=== PATIENT | male | born 1955 | race Caucasian/White ===

== ENCOUNTER → 2018-05-12 | Outpatient (REF) | LOC: M SMT 13:10 | DX: Z00.00 Encounter for general adult medical examination without abnormal findings (principal) ==

== ENCOUNTER → 2024-03-02 | Outpatient (REF) | payer MEDICARE, BC, OTHER ==
[2024-03-02 12:38] LABS: APPEARANCE, URINE CLEAR (CLEAR); BACTERIA, URINE AUTO 1+ (NEGATIVE); BILIRUBIN, URINE AUTO NEGATIVE (NEGATIVE); BLOOD, URINE BLOOD 1+ (NEGATIVE); COLOR, URINE YELLOW (YELLOW); GLUCOSE, URINE (UA) AUTO NEGATIVE (NEGATIVE); KETONE, URINE AUTO NEGATIVE (NEGATIVE); LEUKOCYTE ESTERASE, URINE AUTO TRACE (NEGATIVE); MUCUS, URINE SMALL (NEGATIVE); NITRITE, URINE AUTO NEGATIVE (NEGATIVE); PROTEIN, URINE AUTO NEGATIVE (NEGATIVE); RBC, URINE AUTO 1 /HPF (0-3); SPECIFIC GRAVITY URINE AUTO 1.016 (1.002-1.035); SQUAMOUS EPITHELIAL CELL UR AU 0 /HPF (0-6); WBC, URINE AUTO 4 /HPF (0-3)
== END ==
LOC: M SMT 12:18
PROVIDERS: ATTEND Physician Assistant
DX: R31.21 Asymptomatic microscopic hematuria (principal)

== ENCOUNTER 2025-07-13 08:21 | Day surgery (SDC) | payer MEDICARE, BC ==
[~2025-07-13] VITALS: Ht 185.4 cm; Wt 125.2 kg
[~2025-07-13 08:21] MED LIST: FINA5TAB2 PO; GABA-1172 PO; IBUP600T42 PO; LIFI1DRO4; MIDAZOLAM INJ 2 MG/2 ML VIAL As Ordered ONE; OXYC7.5T3 PO; PHENYLEPHRINE 10% OPHTH SOL 5ML OD PRN; REST0.057; VALS1TAB66 PO
[2025-07-13] MEDS: PHENYLEPHRINE 2.5% OPHTH SOL 2ML OD SCH (08:50)
[2025-07-13] MEDS: CYCLOPENTOLATE 1% OPHTH SOLN 2 ML BTL OD SCH (08:50)
[2025-07-13] MEDS: LIDOCAINE 3.5% 1 ML OPHTH TOPICAL GEL OU ONE (08:50)
[2025-07-13] MEDS: OFLOXACIN 0.3 % (OCUFLOX) OPTH SOL 5ML OD ONE (08:50)
[2025-07-13] MEDS: TROPICAMIDE 1% OPHTH SOLN 15ML OD SCH (08:51)
[2025-07-13] MEDS ORDERED: PROVISC 10 MG/ML 0.85ML SYRINGE As Ordered ONE (09:31)
[2025-07-13] MEDS: LIDOCAINE 1% SDV 5 ML VIAL As Ordered ONE (09:33)
[2025-07-13] MEDS: CEFUROXIME 1 MG/0.1 ML INTRACAMERAL INJ As Ordered ONE (09:33)
[2025-07-13] MEDS: BSS IRRIG/VANCO(10MG)/TOBRA(5MG)/EPINEPH(1:1000-0.5CC)500ML BAG-ORONLY As Ordered ONE (09:33)
[2025-07-13 10:09] VITALS: BP 167/93; TEMP 97.1; O2SAT 98
== END 2025-07-13 10:16 | disposition home or self-care (01) ==
LOC: M SDC 08:21
PROVIDERS: ATTEND Ophthalmology
DX: H25.11 Age-related nuclear cataract, right eye (principal); H40.1111 Primary open-angle glaucoma, right eye, mild stage; G47.33 Obstructive sleep apnea (adult) (pediatric)
CPT/HCPCS: 66988; A4649; C1783; J0697; J2250; J3010; V2632

== ENCOUNTER 2025-08-03 08:12 | Day surgery (SDC) | payer MEDICARE, BC ==
[~2025-08-03] VITALS: Ht 185.4 cm; Wt 125.9 kg
[~2025-08-03 08:12] MED LIST changes: -MIDAZOLAM INJ 2 MG/2 ML VIAL As Ordered ONE; -PHENYLEPHRINE 10% OPHTH SOL 5ML OD PRN; +PHENYLEPHRINE 10% OPHTH SOL 5ML OS PRN
[2025-08-03] MEDS: OFLOXACIN 0.3 % (OCUFLOX) OPTH SOL 5ML OS ONE (11:00)
[2025-08-03] MEDS: LIDOCAINE 3.5% 1 ML OPHTH TOPICAL GEL OU ONE (11:00)
[2025-08-03] MEDS ORDERED: MIDAZOLAM INJ 2 MG/2 ML VIAL As Ordered ONE (11:20)
[2025-08-03] MEDS: CYCLOPENTOLATE 1% OPHTH SOLN 2 ML BTL OS SCH (12:05)
[2025-08-03] MEDS: TROPICAMIDE 1% OPHTH SOLN 15ML OS SCH (12:06)
[2025-08-03] MEDS: PHENYLEPHRINE 2.5% OPHTH SOL 2ML OS SCH (12:06)
[2025-08-03] MEDS: CEFUROXIME 1 MG/0.1 ML INTRACAMERAL INJ As Ordered ONE (12:28)
[2025-08-03] MEDS: LIDOCAINE 1% SDV 5 ML VIAL As Ordered ONE (12:28)
[2025-08-03] MEDS: DUOVISC (0.50 ML VISCOAT/0.85 ML PROVISC) OPHTH KIT As Ordered ONE (12:29)
[2025-08-03] MEDS: BSS IRRIG/VANCO(10MG)/TOBRA(5MG)/EPINEPH(1:1000-0.5CC)500ML BAG-ORONLY As Ordered ONE (12:29)
[2025-08-03] MEDS: CARBACHOL 0.01% OPHTH SOLN 1.5 ML VIAL As Ordered ONE (12:31)
[2025-08-03 12:40] VITALS: BP 169/88; TEMP 97.8; O2SAT 98
== END 2025-08-03 12:57 | disposition home or self-care (01) ==
LOC: M SDC 08:12
PROVIDERS: ATTEND Ophthalmology
DX: H25.12 Age-related nuclear cataract, left eye (principal); H40.1122 Primary open-angle glaucoma, left eye, moderate stage; H57.03 Miosis; I10 Essential (primary) hypertension; G47.30 Sleep apnea, unspecified; G62.9 Polyneuropathy, unspecified; Z79.899 Other long term (current) drug therapy; Z98.41 Cataract extraction status, right eye
CPT/HCPCS: 66989; C1783; J0697; J2250; J3010; V2632